=== PATIENT | male | born 1985 | race Two or more races ===

== ENCOUNTER 2018-10-23 17:35 | Emergency (ER) | payer OTHER ==
[~2018-10-23] VITALS: Ht 182.9 cm; Wt 90.7 kg
[2018-10-23] MEDS ORDERED: HYDROCODONE/APAP 5/325MG 1 EACH TABLET PO ONE (18:00)
[2018-10-23] MEDS ORDERED: IBUPROFEN 400 MG TABLET PO ONE (18:00)
--- NOTE | 2018-10-23 18:01 | NUR ---
PT RECEIVED A&0X3, TOLERATING ROOM AIR WITHOUT DISTRESS, SPO2 WNL, PT REPORTING 6/10 PAIN TO L FOOT/ANKLE. BRUISING NOTES, FULL ROM AND NAD WITH LEYDA. AT BEDSIDE FOR RV.
[2018-10-23] MEDS ORDERED: IBUPROFEN 400 MG TABLET ONE (18:03)
[2018-10-23] MEDS ORDERED: HYDROCODONE/APAP 5/325MG 1 EACH TABLET ONE (18:03)
--- NOTE | 2018-10-23 19:18 | NUR ---
Patient discharged to home in stable condition. Written and verbal after care instructions given. Patient verbalizes understanding of instruction. Pt ambulatory with a steady gait. Pt instructed not to drive, left with father
[2018-10-23 19:20] VITALS: BP 141/83
== END 2018-10-23 19:20 | disposition home or self-care (01) ==
LOC: ER 17:37
DX: S96.812A Strain of other specified muscles and tendons at ankle and foot level, left foot, initial encounter (principal); F17.200 Nicotine dependence, unspecified, uncomplicated; W01.0XXA Fall on same level from slipping, tripping and stumbling without subsequent striking against object, initial encounter; Y93.01 Activity, walking, marching and hiking; Y92.89 Other specified places as the place of occurrence of the external cause; Y99.8 Other external cause status
CPT/HCPCS: 73610; 73630; 99283; A4606; Z7610